=== PATIENT | female | born 1975 | race Caucasian/White ===

== ENCOUNTER 2021-11-04 15:55 | Emergency (ER) | payer OTHER ==
[2021-11-04 18:32] LABS: BASOPHIL 0.3 % (0-2); EOSINOPHIL 0.3 % (0-5); HCT 33.4 % (37.0-47.0); HGB 11.4 g/dl (12.5-16.0); LYMPHOCYTE 19.1 % (15-48); MCH 31.5 pg (25.0-31.0); MCHC 34.1 g/dL (32.0-36.0); MCV 92.3 fL (78.0-100.0); MONOCYTE 11.7 % (0-12); MPV 9.9 fL (6.0-9.5); NEUTROPHIL 68.3 % (41-80); NRBC 0; PLT 151 K/uL (150-400); RBC 3.62 M/uL (4.20-5.40); RDW 11.5 % (11.5-14.0); WBC 3.5 K/uL (4.0-10.5)
[2021-11-04 18:33] LABS: BILIRUBIN NEGATIVE (NEGATIVE); BLOOD NEGATIVE Ery/uL (NEGATIVE); CLARITY CLEAR (CLEAR); COLOR YELLOW (YELLOW); GLUCOSE (U) NORMAL (NORMAL); LEUKOCYTES NEGATIVE Leu/uL (NEGATIVE); NITRITE NEGATIVE (NEGATIVE); PROTEIN NEGATIVE (NEGATIVE); SPECIFIC GRAVITY <=1.005 (1.001-1.030); UROBILINOGEN 0.2 mg/dL (0.2-1.0)
[2021-11-04 19:54] LABS: ALBUMIN 3.7 g/dL (3.4-5.0); BILIRUBIN - TOTAL 0.3 mg/dL (0.2-1.0); BUN/CREAT RATIO (CALC) 9.1 RATIO; C-REACTIVE PROTEIN 3.7 mg/dL (<=0.90); CREATININE 0.77 mg/dL (0.51-0.95); GLOBULIN (CALCULATION) 3.7 g/dL; MAGNESIUM 1.9 mg/dL (1.8-2.4); POTASSIUM 4.4 mmol/L (3.5-5.1); TOTAL PROTEIN 7.4 g/dL (6.4-8.2)
[2021-11-04] MEDS ORDERED: VENTOLIN HFA18 GM INH (20:21)
[2021-11-04] MEDS ORDERED: NAPROXEN500 MG PO (20:21)
[2021-11-04] MEDS ORDERED: ONDANSETRON ODT4 MG PO (20:21)
[2021-11-04] MEDS ORDERED: TESSALON PERLE100 MG PO (20:21)
== END 2021-11-04 20:43 | disposition home or self-care (01) ==
LOC: FER 15:55
PROVIDERS: Emergency Medicine
DX: U07.1 COVID-19 (principal); Z88.0 Allergy status to penicillin; Z88.2 Allergy status to sulfonamides; Z88.5 Allergy status to narcotic agent
CPT/HCPCS: 36415; 80053; 81003; 82728; 83615; 83735; 84145; 85025; 86140; J1885; J2405; J7030